=== PATIENT | female | born 1980 | race Caucasian/White ===

== ENCOUNTER 2019-02-06 14:48 | Emergency (ER) | payer OTHER, SELFPAY ==
[2019-02-06 14:49] VITALS: BP 131/84; PULSE 117; RESP 14; TEMP 36.9; O2SAT 96; BMI 36.6
--- NOTE | 2019-02-06 15:26 | CT_ITS ---
STUDY: CT ABDOMEN AND PELVIS WITH CONTRAST REASON FOR EXAM: Female, 38 years old. RADIATION DOSAGE (If Supplied By Facility): CTDIvol = ( 17.05 ) mGy, DLP = ( 1167.68 ) mGycm TECHNIQUE: Transaxial images were obtained from the dome of the diaphragm to the symphysis pubis without oral contrast. 100mL IV/Oral Isovue 300 was administered. Sagittal and coronal images were reconstructed. Individualized dose optimization techniques were used for this CT. COMPARISON: None. FINDINGS: There are scattered multiple 4 mm and smaller pulmonary nodules right middle lobe and lower lobes.. The visualized portions of the heart are within normal limits. Normal liver. Normal gallbladder and extrahepatic biliary system. Normal spleen. Normal pancreas. Normal bilateral adrenal glands. Normal right kidney. Normal left kidney. Normal visualized stomach. Normal small intestine. Normal colon. The appendix measures 4 mm in diameter. There are no adjacent inflammatory changes. Normal abdominal aorta. Normal inferior vena cava. Normal retroperitoneum. There are mild degenerative changes lumbar spine produces sclerosis of the right SI joint. There is mild bladder wall thickening and mild stranding around the bladder.. There are calcifications in the pelvis likely vascular. Normal abdominal wall. Normal osseous structures. There is 2 x 2.5 cm right adnexal likely ovarian cyst. Right ovary is mildly enlarged. There may be additional ovarian cysts. There are small subcentimeter left ovarian follicular cysts. CT/Abdomen/Pelvis WITH Contrast IMPRESSION: Multiple 4 mm and smaller pulmonary nodules most likely infectious/inflammatory. [address] chest follow-up is recommended The appendix is nondistended and measures 4 mm in diameter. There are no adjacent inflammatory changes to suggest appendicitis. Correlate clinically 2 x 2.5 cm right ovarian cyst, the right ovary is enlarged. There may be a small additional cyst. Pelvic and transvaginal ultrasound could be performed to further evaluate Mild bladder wall thickening, mild stranding around the bladder which could represent cystitis Musculoskeletal spondylosis lumbar spine Right sacroiliitis Electronically Signed: Claus Rivas, at 17:36 EDT Tel , Service support ,
--- NOTE | 2019-02-06 15:33 | ED.VISSUMM ---
- ER Visit Summary Date of Service: 02/06/19 Chief Complaint: Right lower quadrant pain History of Present Illness: The patient is a 38 F presenting with right lower quadrant pain. This started 2-3 days ago. She denies nausea, vomiting, diarrhea. She has had subjective fever at home. She has had decreased appetite. She denies other complaints. Physical Examination: Vitals are stable. Patient is afebrile. Heart rate 117. Alert no acute distress. HEENT exam is unremarkable. Neck is supple. Lungs are clear and equal bilaterally. Heart is regular tachycardic Abdomen is soft right lower quadrant tenderness with no rebound or guarding Extremities are unremarkable. Skin is warm and dry. Remainder of exam is unremarkable. Emergency Department Course and Treatment: Patient was given IV fluids, Zofran. CBC shows white count 12.4. Chemistries are unremarkable. Alk phos 133, AST 14, lipase 68. HCG negative. CT abdomen pelvis shows multiple 4 mm and smaller pulmonary nodules most likely infectious/inflammatory. [address] chest follow-up is recommended. The appendix is nondistended and measures 4 mm in diameter. There are no adjacent inflammatory changes to suggest appendicitis. Correlate clinically. 2 x 2.5 cm right ovarian cyst, the right ovary is enlarged. There may be a small additional cyst. Pelvic and transvaginal ultrasound could be performed to further evaluate. Mild bladder wall thickening, mild stranding around the bladder which could represent cystitis. Musculoskeletal spondylosis lumbar spine Right sacroiliitis. Urinalysis is unremarkable. Pelvic ultrasound shows bilateral ovarian cysts. On reevaluation, patient is resting comfortably. She is advised signs and symptoms for which to return to the ED. Advised to follow-up with her primary care physician. Advised return to ED if worsening complaints. Disposition: Discharge home Impression: Abdominal pain, right ovarian cyst This note was generated with [employer] dictation software. It may contain incorrect words, spelling, and punctuation that were not noted in review of the chart prior to signing ED Disposition - Plan for ED Patient: Referrals: Jacek Hoyt DO [Primary Care Provider] -
[2019-02-06 15:50] LABS: Absolute Lymphocyte Count 1.89 X10^3/ul (0.83-4.51); Absolute Neutrophil Count 9.7 X10^3/uL (2.0-7.7); Basophil# 0.03 X10^3/uL; Basophil% 0.2 % (0-1); Eosinophil# 0.01 X10^3/uL; Eosinophils% 0.1 % (0-5); Hematocrit 41.4 % (37-47); Hemoglobin 13.8 g/dl (12.0-15.0); Lymphocyte # 1.89 X10^3/ul (4.0); Lymphocyte % 15.2 % (19-41); Mean Corp Hgb Conc 33.3 g/gl (32-36); Mean Corpuscular Hgb 28.2 pg (27.0-32.0); Mean Corpuscular Volume 84.7 fL (81-99); Mean Platelet Vol. 9.1 fl (6.2-12.0); Monocyte# 0.78 X10^3/uL; Monocyte% 6.3 % (0-10); Neutrophil # 9.69 X10^3/uL (2.7-7.7); Platelet Count 348 K/mm3 (150-450); RBC Distribution Width CV 14.1 % (11.6-14.6); RBC Distribution Width SD 42.9 fl (35.1-43.9); Red Blood Count 4.89 M/mm3 (4.2-5.4); White Blood Count 12.4 K/mm3 (4.4-11.0)
[2019-02-06 15:54] LABS: POSITIVE COUNT NO; POSITIVE DIFFERENTIAL NO; POSITIVE MORPHOLOGY NO
[2019-02-06] MEDS: 0.9% Normal Saline 1,000 ML 1000 ML IV (15:55)
[2019-02-06] MEDS: Ondansetron 4 MG/2 ML Vial IV (15:55)
[2019-02-06 16:02] LABS: AST(SGOT) 14 U/L (15-37); Alanine Aminotransfer ALT/SGPT 22 U/L (13-56); Alkaline Phosphatase 133 U/L (45-117); Anion Gap 10 (5-15); BUN 14 mg/dL (7-18); BUN/Creat Ratio 19.2 RATIO (10-20); Bilirubin, Direct 0.12 mg/dL (0.00-0.30); Calcium,Total 8.9 mg/dL (8.5-10.1); Chloride 106 mmol/L (98-107); Creatinine, Serum 0.73 mg/dL (0.55-1.02); EST Glomerular Filtration Rate 96 mL/min (>60); Est Glom Filt Rate - Afr Amer 116 mL/min (>60); Estimated Creatinine Clearance 84.26 ml/min; Globulin 4.1 g/dL (2.2-4.2); Glucose 97 mg/dL (74-106); Lipase 68 U/L (73-393); Potassium 3.7 mmol/L (3.5-5.1); Protein, Total 8.1 g/dL (6.4-8.2); Sodium Level 140 mmol/L (136-145)
[2019-02-06 16:29] LABS: Pregnancy, Serum, hCG Quali. NEGATIVE Negative (0-9 Nonpreg)
[2019-02-06 17:00] VITALS: RESP 12
--- NOTE | 2019-02-06 17:51 | US_ITS ---
We are attempting to reach Rachael Bates MD to discuss findings. An addendum with communication details will be sent when the communication is complete. STUDY: ULTRASOUND OF THE FEMALE PELVIS - COMPLETE REASON FOR EXAM: Female, 38 years old. Pelvic pain, ovarian cysts LMP: TECHNIQUE: History of pelvic and transvaginal ultrasound was performed. Multiple gonzalez scale and color duplex Doppler images were obtained. TECHNICAL QUALITY: Adequate. COMPARISON: CT same day. FINDINGS: The uterus is anteverted and is in a midline position. The uterus measures 7.9 x 5 x 3.8 cm. Normal uterine cervix. The endometrium measures 4 mm in thickness, and is unremarkable. There is no demonstrated endometrial mass. There is no demonstrated myometrial mass. I.U.D. - The patient does not have an I.U.D. The right ovary is visualized. The right ovary measures 4.1 x 3.4 x 2.5 cm. There is a 2.4 x 2.5 x 2.2 cm right ovarian cyst. There is no visualized right adnexal mass or complex lesion. There is normal arterial and normal venous vascularity. The left ovary is visualized. The left ovary measures 3.1 x 2.1 x 1.3 cm. There are left ovarian follicular cysts largest measuring 1.3 x 0.7 x 0.5 cm. There is no visualized left adnexal mass or complex lesion. There is normal arterial and normal venous vascularity. There is no fluid in the cul-de-sac. US/Transvaginal Non- IMPRESSION: Bilateral ovarian cysts as above Electronically Signed: Claus Rivas, at 19:50 EDT Tel , Service support ,
[2019-02-06 18:27] LABS: Mucous, Urine 0 SEEN /hpf (<or=2+); Red Blood Cells-Urine 0 SEEN /hpf (0-5)
[2019-02-06 18:28] LABS: Color, Urine Yellow (Yellow); Glucose, Dipstick Normal (Normal); Ketone-Dipstick 50 mg/dl (Negative); Leukocyte Esterase-Dipstick Negative /ul (Negative); Nitrite-Dipstick Negative (Negative); Occult Blood-Urine Negative /ul (Negative); Protein-Dipstick Negative (Negative); Urine Bilirubin Dipstick Negative (Negative); Urine Clarity Clear (Clear); Urine Urobilinogen Normal (Normal)
[2019-02-06 18:35] LABS: Bacteria RARE /hpf (None Seen); Squamous Epithelial Cells - UA 5-10 SEEN /hpf (5-10); White Blood Cells 0-5 SEEN /hpf (0-5)
--- NOTE | 2019-02-06 20:29 | ED.DEP ---
ED Disposition - Plan for ED Patient: Instructions: ED Cyst Ovarian Prescriptions: Naproxen [Naprosyn] 500 mg PO BID PRN #20 tablet Referrals: Jacek Hoyt DO [Primary Care Provider] -
[2019-02-06 21:04] VITALS: BP 124/86; PULSE 87; RESP 18; O2SAT 96
== END 2019-02-06 21:05 | disposition home or self-care (01) ==
LOC: ED 16:15
PROVIDERS: Emergency Provider Emergency Medicine; Family Provider Family Medicine; PCP Family Medicine
DX: N83.201 Unspecified ovarian cyst, right side (principal); R91.8 Other nonspecific abnormal finding of lung field; R00.0 Tachycardia, unspecified; M46.1 Sacroiliitis, not elsewhere classified; Z79.899 Other long term (current) drug therapy
CPT/HCPCS: 74177; 76830; 80048; 80076; 81001; 83690; 84703; 85025; 96361; 96374; 99283; J7030; Q9967; A4216; J2405